=== PATIENT | female | born 1955 | race Caucasian/White ===

== ENCOUNTER 2018-03-23 10:24 | Outpatient (CLI) | payer OTHER | END 2018-03-23 10:25 | disposition home or self-care (01) | LOC: SLEEPLAB 10:24 | PROVIDERS: ATTEND Internal Medicine Critical Care Medicine | DX: G47.33 Obstructive sleep apnea (adult) (pediatric) (principal); R53.83 Other fatigue; G47.10 Hypersomnia, unspecified; G47.00 Insomnia, unspecified; F41.8 Other specified anxiety disorders; E11.9 Type 2 diabetes mellitus without complications; J30.2 Other seasonal allergic rhinitis; R06.83 Snoring; Z68.39 Body mass index [BMI] 39.0-39.9, adult | CPT/HCPCS: 95810 ==

== ENCOUNTER 2018-04-13 20:30 | Outpatient (CLI) | payer OTHER | END 2018-04-13 20:31 | disposition home or self-care (01) | LOC: SLEEPLAB 20:30 | PROVIDERS: ATTEND Internal Medicine Critical Care Medicine | DX: G47.33 Obstructive sleep apnea (adult) (pediatric) (principal); R53.83 Other fatigue; G47.00 Insomnia, unspecified; G47.10 Hypersomnia, unspecified; R06.83 Snoring; F41.8 Other specified anxiety disorders; J30.2 Other seasonal allergic rhinitis; Z68.39 Body mass index [BMI] 39.0-39.9, adult | CPT/HCPCS: 95811 ==

== ENCOUNTER 2018-07-07 13:53 | Observation (INO) | payer OTHER ==
--- NOTE | 2018-07-07 14:25 | RAD ---
CHEST 1 VIEW: Date: 07/07/18 HISTORY: Chest pain. FINDINGS: No comparison. Cardiac silhouette is magnified by projection. Pulmonary vasculature unremarkable. Mediastinum is mid line. No lobar consolidation or evidence of pneumothorax. Metallic bars overlying the right axilla ar e favored to represent clothing artifact. IMPRESSION: No active cardiopulmonary abnormalities are demonstrated. POS: [facility]
[2018-07-07 14:56] LABS: #Eosinphils 0.2 thou/uL (0.0-0.7); #Lymphocytes 1.6 thou/uL (1.20-3.40); #Monocytes 0.5 thou/uL (0.11-0.59); #Neutrophils 4.1 thou/uL (1.40-6.50); %Basophils 0.8 % (0.0-1.0); %Eosinophils 2.5 % (0.0-10.0); %Lymphocytes 25.5 % (21.0-51.0); %Monocytes 7.1 % (0.0-10.0); %Neutrophils 64.1 % (42.0-75.0); Hemoglobin 12.4 g/dL (12.0-16.0); Mean Corpuscular HGB CONC 32.7 g/dL (32.0-36.0); Mean Corpuscular Hemoglobin 27.1 pg (27.0-31.0); Mean Corpuscular Volume 82.9 fL (78.0-98.0); Mean Platelet Volume 8.5 fL (7.4-10.4); Platelet Count 346 thou/uL (130-400); RBC Distribution Width 13.6 % (11.5-14.5); Red Blood Cell (RBC) Count 4.57 mill/uL (4.20-5.40); White Blood Cell (WBC) Count 6.3 thou/uL (4.8-10.8)
[2018-07-07 15:18] LABS: ALT (SGPT) 16 U/L (8-55); AST (SGOT) 17 U/L (5-34); Albumin 4.1 g/dL (3.5-5.0); Alkaline Phosphatase 115 U/L (40-150); Anion Gap 14 mmol/L (10-20); BUN (Urea Nitrogen) 15 mg/dL (9.8-20.1); Bilirubin, Total 0.3 mg/dL (0.2-1.2); CK (CPK) 58 U/L (29-168); Calc. Creatinine Clearance 0 mL/min (70-130); Calcium 9.3 mg/dL (7.8-10.44); Carbon Dioxide 26 mmol/L (22-29); Chloride 104 mmol/L (98-107); Estimated GFR-MDRD 70; Globulin 2.9 g/dL (2.4-3.5); Glucose 148 mg/dL (70-105); Potassium 3.6 mmol/L (3.5-5.1); Sodium 140 mmol/L (136-145)
[2018-07-07 15:21] LABS: CKMB 0.6 ng/mL (0-6.6); Troponin I Less than 0.010 ng/mL (< 0.028)
[2018-07-07] MEDS ORDERED: Ketorolac Tromethamine 30 MG/ML VIAL ONE ×2 (15:36→15:37)
[2018-07-07] MEDS ORDERED: Acetaminophen 325 MG TAB PO PRN (17:46)
[2018-07-07] MEDS ORDERED: Dextrose 5% in Water 1,000 ML IV PRN (17:46)
[2018-07-07] MEDS ORDERED: HumaLOG 300 UNITS/3 ML VIAL SC PRN (17:46)
[2018-07-07] MEDS ORDERED: Nitroglycerin 0.4 MG TAB (25 Tab Bottle) PO PRN (17:46)
[2018-07-07] MEDS ORDERED: Dextrose 50% Abboject 50 ML SYRINGE SLOW IVP PRN (17:46)
[2018-07-07] MEDS ORDERED: Guaifenesin DM 100-10/5 ML UDCUP PO PRN (17:46)
[2018-07-07 18:35] LABS: Troponin I Less than 0.010 ng/mL (< 0.028)
[2018-07-07 18:49] VITALS: BMI 40.0
[2018-07-07] MEDS ORDERED: Atorvastatin Calcium 10 MG TAB PO SCH (21:00)
[2018-07-07] MEDS ORDERED: Venlafaxine HCl 25 MG TAB PO SCH (21:00)
[2018-07-07] MEDS ORDERED: Amitriptyline HCl 10 MG TAB PO SCH (21:15)
--- NOTE | 2018-07-07 21:23 | HP ---
PRIMARY CARE PHYSICIAN: Dr. Cherry. REASON FOR ADMISSION: Chest pain. HISTORY OF PRESENT ILLNESS: The patient gives history of left-sided chest pain radiating to neck and shoulder. This lasted for several hours today. She had similar episode 2 weeks back, which was off and on and lasted for nearly two weeks. No complaints of cough or expectoration. No fever. No complaints of palpitations, PND or orthopnea. Chest pains are irrespective of exertion and the pain is 3-4/10 in intensity. PAST MEDICAL AND SURGICAL HISTORY: Prediabetes, obstructive sleep apnea on CPAP , dyslipidemia, right wrist surgery, hysterectomy, anxiety and depression. CURRENT MEDICATIONS: Estradiol 1 mg p.o. daily, Lipitor 10 mg p.o. daily, metformin 500 mg p.o. twice daily for prediabetes, Effexor 25 mg p.o. daily, amitriptyline 25 mg p.o. daily for migraine prophylaxis, Celebrex 100 mg p.o. daily p.r.n. for pain. ALLERGIES: MORPHINE, which causes anaphylaxis. PERSONAL HISTORY: Does not abuse alcohol or drugs. No history of smoking. FAMILY HISTORY: Mother at the age of 69 years. She has had history of hypertension and dementia. Father at the age of 72 years. He has had history of CABG and hypertension. CODE STATUS: FULL. power of family law attorney is her daughter, Ms. Kiser. REVIEW OF SYSTEMS: The following complete review of systems was negative, unless otherwise mentioned in the HPI or below: Constitutional: Weight loss or gain, ability to conduct usual activities. Skin: Rash, itching. Eyes: Double vision, pain. ENT/Mouth: Nose bleeding, neck stiffness, pain, tenderness. Cardiovascular: Palpitations, dyspnea on exertion, orthopnea. Respiratory: Shortness of breath, wheezing, cough, hemoptysis, fever or night sweats. Gastrointestinal: Poor appetite, abdominal pain, heartburn, nausea, vomiting, constipation, or diarrhea. Genitourinary: Urgency, frequency, dysuria, nocturia. Musculoskeletal: Pain, swelling. Neurologic/Psychiatric: Anxiety, depression. Allergy/Immunologic: Skin rash, bleeding tendency. PHYSICAL EXAMINATION: GENERAL: The patient is a 62-year-old female who is currently not in any acute distress. VITAL SIGNS: Blood pressure 148/82, pulse 90 per minute, respiratory rate 20 per minute, temperature 98.5 degrees Fahrenheit, saturating 98% on room air. NECK: Supple, no elevated JVD. EYES: Extraocular muscles intact. Pupils reacting to light. ORAL CAVITY: Mucous membranes are moist. No exudates or congestion. CARDIOVASCULAR SYSTEM: S1, S2 heard. Regular rhythm. RESPIRATORY SYSTEM: Air entry 2+ bilateral. No rales or rhonchi. ABDOMEN: Soft, bowel sounds heard. No tenderness, rigidity or guarding. EXTREMITIES: No peripheral edema or calf tenderness. VASCULAR SYSTEM: Peripheral pulses 2+ bilateral. No ischemic ulcerations or gangrene. CENTRAL NERVOUS SYSTEM: No gross focal motor deficits noted. Patient is alert , awake, and oriented well. PSYCHIATRIC SYSTEM: The patient's mood is euthymic. No hallucinations or delusions. LABORATORY DATA AND IMAGING DATA: White count of 6.3, hemoglobin and hematocrit 12 and 37, platelet count 346, MCV is 82 with 64% neutrophils. Electrolytes stable. BUN 15, creatinine 0.8, serum glucose 148. Liver enzymes are within normal limits. First set of cardiac enzymes are negative. Albumin is 4.1. Chest x-ray done shows no acute cardiopulmonary abnormalities. EKG done shows normal sinus rhythm at 86 beats per minute. There is low voltage seen with nonspecific ST-T wave changes. CLINICAL IMPRESSION AND PLAN: The patient will be under observation on telemetry for chest pain, rule out acute coronary syndrome. The patient has multiple risk factors. We will follow ACS evidence based protocol with one more set of troponin and a nuclear stress test in the morning. She has been on full dose aspirin and will continue her home medications Elavil, estradiol and Effexor as before. Lovastatin is not in the formulary. She will also be on Lipitor 10 mg p.o. at bedtime. We will obtain lipid profile in the morning. ERICA
[2018-07-07] MEDS: Famotidine 20 MG TAB PO SCH (21:30)
[2018-07-07 21:32] LABS: Troponin I Less than 0.010 ng/mL (< 0.028)
[2018-07-08 05:13] LABS: Anion Gap 11 mmol/L (10-20); BUN (Urea Nitrogen) 15 mg/dL (9.8-20.1); Calc. Creatinine Clearance 143 mL/min (70-130); Calcium 8.9 mg/dL (7.8-10.44); Carbon Dioxide 28 mmol/L (22-29); Chloride 106 mmol/L (98-107); Cholesterol 186 mg/dl (< 200 Desired); Estimated GFR-MDRD 85; Glucose 101 mg/dL (70-105); HDL Cholesterol 62 mg/dL (>60 Neg Risk); LDL Cholesterol, Calculated 104 mg/dL; Potassium 3.9 mmol/L (3.5-5.1); Sodium 141 mmol/L (136-145); Triglycerides 99 mg/dL (Less than 150)
[2018-07-08] MEDS: Famotidine 20 MG TAB PO SCH (08:31)
[2018-07-08] MEDS ORDERED: Estradiol 1 MG TAB PO SCH (09:00)
[2018-07-08] MEDS ORDERED: Venlafaxine HCl XR 150 MG CAP PO SCH (09:00)
[2018-07-08] MEDS ORDERED: Amitriptyline HCl 25 MG TAB PO SCH (09:00)
[2018-07-08] MEDS ORDERED: Aspirin 325 MG TAB PO SCH (09:00)
--- NOTE | 2018-07-08 10:25 | PDOC.PN ---
- Subjective Encounter Start Date: 07/08/18 Encounter Start Time: 09:45 Subjective: no chest pain or sob -: feels better - Objective Resuscitation Status: Resuscitation Status FULL:Full Resuscitation MAR Reviewed: Yes Vital Signs & Weight: Vital Signs (12 hours) Temp Pulse Resp BP Pulse Ox 07/08/18 08:00 98.1 F 74 20 122/56 L 94 L 07/08/18 03:07 98 F 73 20 110/56 L 95 Weight Weight 233 lb 7 oz I&O: 07/07/18 07/08/18 07/09/18 06:59 06:59 06:59 Intake Total 700 Output Total 275 Balance 425 Result Diagrams: 07/07/18 14:45 07/08/18 04:30 Additional Labs: Accuchecks 07/08/18 07/07/18 06:12 22:10 POC Glucose 99 140 H Phys Exam - Physical Examination HEENT: PERRLA, moist MMs Neck: no JVD, supple Respiratory: no wheezing, no rales Cardiovascular: RRR, no significant murmur Gastrointestinal: soft, non-tender, positive bowel sounds Musculoskeletal: no edema, pulses present Neurological: non-focal, moves all 4 limbs Psychiatric: normal affect, A&O x 3 Dx/Plan (1) Chest pain Code(s): R07.9 - CHEST PAIN, UNSPECIFIED Status: Acute (2) DM type 2 (diabetes mellitus, type 2) Status: Chronic Qualifiers: Diabetes mellitus care home insulin use: without care home use Diabetes mellitus complication status: with unspecified complications Qualified Code(s) : E11.8 - Type 2 diabetes mellitus with unspecified complications (3) Dyslipidemia Code(s): E78.5 - HYPERLIPIDEMIA, UNSPECIFIED Status: Chronic (4) JERRI (obstructive sleep apnea) Code(s): G47.33 - OBSTRUCTIVE SLEEP APNEA (ADULT) (PEDIATRIC) Status: Chronic (5) Obesity Code(s): E66.9 - OBESITY, UNSPECIFIED Status: Chronic Qualifiers: Obesity classification: adult class 3 (BMI >= 40) Body mass index: BMI 40.0 -44.9 - Plan hemostable -: await stress test results -: will increase lipitor to 20mg daily -: may dc home if stress test is normal * . Review of Systems - Medications/Allergies Allergies/Adverse Reactions: Allergies Allergy/AdvReac Type Severity Reaction Status Date / Time morphine Allergy Anaphylaxis Verified 07/07/18 20:12 Medications: Current Medications Acetaminophen (Tylenol) 650 mg PO Q4H PRN PRN Reason: Headache/Fever/Mild Pain (1-3) Amitriptyline HCl (Elavil) 10 mg PO HS [facility] Last Admin: 07/07/18 21:30 Dose: 10 mg Aspirin (Aspirin) 325 mg PO DAILY [facility] Last Admin: 07/08/18 08:32 Dose: 325 mg Atorvastatin Calcium (Lipitor) 10 mg PO HS [facility] Last Admin: 07/07/18 22:16 Dose: Not Given Dextrose/Water (Dextrose 50%) 25 gm SLOW IVP PRN PRN PRN Reason: Hypoglycemia Estradiol (Estrace) 1 mg PO DAILY [facility] Last Admin: 07/08/18 08:31 Dose: 1 mg Famotidine (Pepcid) 20 mg PO BID [facility] Last Admin: 07/08/18 08:31 Dose: 20 mg Glucagon (Glucagon) 1 mg IM PRN PRN PRN Reason: Hypoglycemia Guaifenesin/Dextromethorphan (Robitussin Dm) 15 ml PO Q4H PRN PRN Reason: Cough Dextrose/Water (D5w) 1,000 mls @ 0 mls/hr IV .Q0M PRN PRN Reason: Hypoglycemia Insulin Human Lispro (Humalog) 0 units SC .MILD SLIDING SCALE PRN PRN Reason: Mild Correctional Scale Nitroglycerin (Nitrostat) 0.4 mg PO Q5MIN PRN PRN Reason: Chest Pain Venlafaxine HCl (Effexor Xr) 150 mg PO DAILY [facility]
[2018-07-08 12:01] VITALS: BP 150/76; TEMP 97.8
--- NOTE | 2018-07-08 14:16 | NM ---
CARDIAC SPECT: CLINICAL HISTORY: 62-year-old female with chest pain. Dyslipidemia. TECHNIQUE: A stress-only myocardial perfusion scan was performed following the intravenous administration of 31 mCi technetium-99m sestamibi. Exercise stress was monitored and interpreted by Dr. Valle. FINDINGS: Homogeneous tracer distribution is seen in the myocardial segments on the post stress images. GATED SPECT LVEF: 74%. WALL MOTION EXAM: Normal. IMPRESSION: Normal post stress myocardial perfusion scan. POS: [facility]
[2018-07-08] MEDS ORDERED: Amitriptyline HCl 10 MG TAB PO SCH (21:00)
--- NOTE | 2018-07-08 21:46 | DIS ---
DATE OF ADMISSION: 07/07/2018 DATE OF DISCHARGE: 07/08/2018 DISCHARGE DISPOSITION: To home. PRIMARY DISCHARGE DIAGNOSIS: Chest pain, which is noncardiac. SECONDARY DISCHARGE DIAGNOSES: Diabetes mellitus type 2, dyslipidemia, obstructive sleep apnea, obes ity. PROCEDURES DONE DURING HOSPITALIZATION: The patient has had chest x-ray done which showed no acute c ardiopulmonary abnormalities. Two sets of cardiac enzymes were negative. Total cholesterol 186, tri glycerides 99, LDL 104 and HDL 62. Nuclear stress test done showed normal wall motion with normal po st-stress myocardial perfusion scan. EF was 74% on the stress test. DISCHARGE MEDICATIONS: Amitriptyline 10 mg p.o. at bedtime, calcium carbonate 500 mg p.o. daily, Jennifer ebrex 200 mg p.o. daily, estradiol 1 mg p.o. daily, metformin extended release 500 mg p.o. twice nelda y month, multivitamin 1 tab daily, omeprazole 20 mg daily, venlafaxine extended release 150 mg p.o. d aily, atorvastatin 20 mg p.o. daily. ALLERGIES: MORPHINE. DISCHARGE PLAN: Patient to follow up with Dr. Cherry in 1-2 weeks. BRIEF COURSE DURING HOSPITALIZATION: Patient initially came in with complaints of left-sided chest p ain with multiple risk factors for ACS. The patient was placed under observation and ACS evidence ba sed protocol was followed. Three sets of troponin were negative and a nuclear stress test done was n egative for reversible ischemia. The patient remained chest pain free all through her stay here. He r Lipitor dose has been increased to 20 mg daily. She is otherwise hemodynamically stable and needs follow up with her primary care physician in 1 week.
== END 2018-07-08 15:47 | disposition home or self-care (01) ==
LOC: ERS 13:53 → 2SW 18:38
PROVIDERS: ADMIT Internal Medicine; ATTEND Internal Medicine
DX: R07.89 Other chest pain (principal); E11.9 Type 2 diabetes mellitus without complications; G47.33 Obstructive sleep apnea (adult) (pediatric); E66.9 Obesity, unspecified; Z79.84 Long term (current) use of oral hypoglycemic drugs; Z79.899 Other long term (current) drug therapy; Z88.8 Allergy status to other drugs, medicaments and biological substances; Z68.41 Body mass index [BMI] 40.0-44.9, adult
CPT/HCPCS: 36415; 36416; 71045; 78452; 80048; 80053; 80061; 82553; 84484; 85025; 93005; 93017; 94760; A9500; G0378; J1885

== ENCOUNTER 2018-08-17 10:01 | Outpatient (CLI) | payer OTHER | END 2018-08-17 10:02 | disposition home or self-care (01) | LOC: BICMAMMO 10:01 | PROVIDERS: ATTEND Family Medicine | DX: Z12.31 Encounter for screening mammogram for malignant neoplasm of breast (principal) | CPT/HCPCS: 77063; 77067 ==

== ENCOUNTER 2021-11-06 11:43 | Outpatient (CLI) | payer BC | END 2021-11-06 11:44 | disposition home or self-care (01) | LOC: BICMAMMO 11:43 | PROVIDERS: ATTEND Family Medicine | DX: Z12.31 Encounter for screening mammogram for malignant neoplasm of breast (principal) | CPT/HCPCS: 77063; 77067 ==